=== PATIENT | male | born 1965 | race Caucasian/White ===

== ENCOUNTER 2017-08-09 15:36 | Observation (INO) | payer OTHER ==
[2017-08-09 15:48] VITALS: BP 113/85; PULSE 108; TEMP 98.5; BMI 24.2
[2017-08-09] MEDS ORDERED: ONDANSETRON 4 MG/2 ML VIAL IVPUSH ONE (18:13)
[2017-08-09] MEDS ORDERED: PANTOPRAZOLE SODIUM 40 MG in SODIUM CHLORIDE 100 ML IVPB ONE (18:13)
[2017-08-09] MEDS ORDERED: FOLIC ACID INJECTION - 1 MG, THIAMINE HCL 100 MG, MULTIVIT INJECTION ADULT 10 ML in SOD... IVPB ONE ×2 (18:14→20:55)
--- NOTE | 2017-08-09 18:34 | PDOC ---
History of Present Illness - General History Source: Patient Exam Limitations: No Limitations - History of Present Illness Initial Comments: 08/09/17 18:09 51-year-old male presents to the ED with complaints of generalized malaise, nausea and vomiting with epigastric pain for the past 3 days. Patient states was a heavy alcohol drinker consuming approximately 12. Her dad which she's been doing for numerous years along with similar smoking and states has had symptoms like this before along with tremors but never to this extent. Patient states last drink was 2:30 PM . Patient denies change in bowel, change in bladder, rash, lower extremity edema, chest pain, shortness of breath or headache. Severity: moderate Associated Symptoms: reports: loss of appetite, nausea/vomiting, weakness <Michelle Hill - Last Filed: 08/09/17 18:51> <Marlon Shafer - Last Filed: 08/09/17 21:53> - General Chief Complaint: Nausea/Vomiting Stated Complaint: VOMITING, INTOX Time Seen by Provider: 08/09/17 16:26 Past History - Travel Traveled outside of the country in the last 30 days: No - Past Medical History Anemia: No Asthma: No Cancer: No Cardiac Disorders: No CVA: No COPD: No CHF: No Dementia: No Diabetes: No GI Disorders: No Disorders: No HTN: No Hypercholesterolemia: No Liver Disease: No Seizures: No Thyroid Disease: No Other medical history: alcoholic - Surgical History Abdominal Surgery: No Appendectomy: No Cardiac Surgery: No Cholecystectomy: No Lung Surgery: No Neurologic Surgery: No Orthopedic Surgery: No - Suicide/Smoking/Psychosocial Hx Smoking Status: Yes Smoking History: Current every day smoker Have you smoked in the past 12 months: Yes Number of Cigarettes Smoked Daily: 10 Cigars Per Day: 1 Information on smoking cessation initiated: Yes 'Breaking Loose' booklet given: 08/09/17 Hx Alcohol Use: Yes (daily) Drug/Substance Use Hx: No Substance Use Type: Alcohol Hx Substance Use Treatment: No Patient Lives Alone: No Lives with/in: mother <Michelle Hill - Last Filed: 08/09/17 18:51> <Marlon Shafer - Last Filed: 08/09/17 21:53> - Past Medical History Allergies/Adverse Reactions: Allergies Allergy/AdvReac Type Severity Reaction Status Date / Time No Known Allergies Allergy Verified 08/09/17 15:45 Home Medications: Ambulatory Orders NK [No Known Home Medication] 08/09/17 Review of Systems - Review of Systems Able to Perform ROS?: No Constitutional: Yes: Weakness HEENTM: No: Symptoms Reported Respiratory: No: Symptoms reported Cardiac (ROS): No: Symptoms Reported ABD/GI: Yes: Nausea, Vomiting, Abdominal cramping. No: Constipated, Diarrhea, Poor Appetite, Poor Fluid Intake : No: Symptoms Reported Musculoskeletal: No: Symptoms Reported Integumentary: No: Symptoms Reported Neurological: No: Symptoms reported Endocrine: No: Symptoms Reported Hematologic/Lymphatic: No: Symptoms Reported <Michelle Hill - Last Filed: 08/09/17 18:51> *Physical Exam - Vital Signs Last Vital Signs Temp Pulse Resp BP Pulse Ox 98.5 F 108 H 18 113/85 100 08/09/17 15:45 08/09/17 15:45 08/09/17 15:45 08/09/17 15:45 08/09/17 15:45 - Physical Exam General Appearance: Yes: Nourished, Appropriately Dressed. No: Apparent Distress HEENT: positive: EOMI, TAWNYA. negative: Pale Conjunctivae Neck: positive: Supple Respiratory/Chest: positive: Lungs Clear, Normal Breath Sounds. negative: Respiratory Distress, Accessory Muscle Use Cardiovascular: positive: Regular Rhythm, Regular Rate. negative: Murmur Gastrointestinal/Abdominal: positive: Soft, Tenderness (epigastric) Musculoskeletal: negative: CVA Tenderness Extremity: positive: Normal Capillary Refill. negative: Pedal Edema Integumentary: positive: Normal Color, Warm, Moist Neurologic: positive: Motor Strength 5/5 (ambulatory) <Michelle Hill - Last Filed: 08/09/17 18:51> - Vital Signs Last Vital Signs Temp Pulse Resp BP Pulse Ox 98.5 F 108 H 18 113/85 100 08/09/17 15:45 08/09/17 15:45 08/09/17 15:45 08/09/17 15:45 08/09/17 15:45 <Marlon Shafer - Last Filed: 08/09/17 21:53> ED Treatment Course - LABORATORY CBC & Chemistry Diagram: 08/09/17 18:40 08/09/17 18:40 - RADIOLOGY Radiology Studies Ordered: Category Date Time Status CHEST X-RAY PORTABLE* [RAD] Stat Radiology 08/09/17 18:13 Ordered <Michelle Hill - Last Filed: 08/09/17 18:51> - LABORATORY CBC & Chemistry Diagram: 08/09/17 18:40 08/09/17 18:40 - ADDITIONAL ORDERS Additional order review: Laboratory Results 08/09/17 08/09/17 08/09/17 19:39 18:40 18:40 Sodium Potassium Chloride Carbon Dioxide Anion Gap BUN Creatinine Creat Clearance w eGFR Random Glucose Calcium Magnesium Total Bilirubin AST ALT Alkaline Phosphatase Total Protein Albumin Lipase Urine Color Ltyellow Urine Appearance Clear Urine pH 6.0 Urine Protein Negative Urine Glucose (UA) Negative Urine Ketones Negative Urine Blood 1+ H Urine Nitrite Negative Urine Bilirubin Negative Urine Urobilinogen Negative Alcohol, Quantitative 280.3 H* Acetone, Qual Cancelled 08/09/17 18:40 Sodium Cancelled Potassium Cancelled Chloride Cancelled Carbon Dioxide Cancelled Anion Gap Cancelled BUN Cancelled Creatinine Cancelled Creat Clearance w eGFR Cancelled Random Glucose Cancelled Calcium Cancelled Magnesium Cancelled Total Bilirubin Cancelled AST Cancelled ALT Cancelled Alkaline Phosphatase Cancelled Total Protein Cancelled Albumin Cancelled Lipase Cancelled Urine Color Urine Appearance Urine pH Urine Protein Urine Glucose (UA) Urine Ketones Urine Blood Urine Nitrite Urine Bilirubin Urine Urobilinogen Alcohol, Quantitative Acetone, Qual 08/09/17 18:40 RBC 3.45 L D MCV 91.6 MCHC 33.8 RDW 14.1 MPV 8.1 Neutrophils % 55.8 Lymphocytes % 35.3 D Monocytes % 8.5 Eosinophils % 0.0 D Basophils % 0.4 - Medications Given in the ED: ED Medications Discontinued Medications Generic Name Dose Route Start Last Admin Trade Name Freq PRN Reason Stop Dose Admin Pantoprazole Sodium 40 mg/ 100 mls @ 200 mls/hr 08/09/17 18:13 08/09/17 18:42 Sodium Chloride IVPB 08/09/17 18:42 200 mls/hr ONCE ONE Administration Ondansetron HCl 4 mg 08/09/17 18:13 08/09/17 18:40 Zofran Injection IVPUSH 08/09/17 18:14 4 mg ONCE ONE Administration <Marlon Shafer - Last Filed: 08/09/17 21:53> Medical Decision Making - Medical Decision Making 08/09/17 18:33 Patient here for evaluation of nausea vomiting and epigastric pain along with heavy alcohol use. Patient denies history of ulcers, pancreatitis, seizure, or inpatient rehabilitation for alcohol withdrawel. Patient states has no other symptoms at this time. Patient on exam had epigastric tenderness and appeared dehydrated. Patient ordered for labs, EKG, urine urine toxicology, alcohol level , banana bag, Zofran and Protonix. 08/09/17 18:51 Patient and his family is requesting rehabilitation. <Michelle Hill - Last Filed: 08/09/17 18:51> - Medical Decision Making 08/09/17 21:51 Patient eloped from emergency department. Patient had bed assigned and did not want to wait any longer. He requested the nurse remove his IV and refused to sign paperwork and walked out of ED. <Marlon Shafer - Last Filed: 08/09/17 21:53> *DC/Admit/Observation/Transfer <Michelle Hill - Last Filed: 08/09/17 18:51> - Discharge Dispostion Decision to Admit order Date/Time: 08/09/17 20:53 Patient will be an ED Observation patient at this time. Alcohol level 280. Patient needs to be at 100 for clearance to detox. <Malron Shafer - Last Filed: 08/09/17 21:53> Diagnosis at time of Disposition: Intoxication - Discharge Dispostion Disposition: ELOPED Condition at time of disposition: Stable
[2017-08-09] MEDS ORDERED: PANTOPRAZOLE SODIUM 100 ML IVPB ONE (18:35)
[2017-08-09] MEDS ORDERED: ONDANSETRON 4 MG/2 ML VIAL ONE (18:35)
[2017-08-09 18:52] LABS: BASOPHIL 0.4 % (0-2.0); MCHC 33.8 g/dl (32.0-35.9); MEAN CELL VOLUME 91.6 fl (80-96); MEAN PLT VOLUME 8.1 fl (7.5-11.1); NEUTROPHILS 55.8 % (42.8-82.8); PLATELET COUNT 132 K/MM3 (134-434); RDW 14.1 % (11.9-15.9); WHITE BLOOD COUNT 4.2 K/mm3 (4.0-10.0)
[2017-08-09 19:55] LABS: URINE APPEARANCE CLEAR; URINE BILIRUBIN NEGATIVE (NEGATIVE); URINE BLOOD 1+ (NEGATIVE); URINE COLOR LTYELLOW; URINE GLUCOSE (UA) NEGATIVE (NEGATIVE); URINE KETONE NEGATIVE (NEGATIVE); URINE LEUK ESTERASE NEGATIVE (NEGATIVE); URINE NITRITE NEGATIVE (NEGATIVE); URINE PROTEIN NEGATIVE (NEGATIVE); URINE UROBILINOGEN NEGATIVE mg/dL (0.2-1.0)
[2017-08-09 20:53] LABS: URINE BACTERIA RARE /hpf (NONE SEEN); URINE MUCUS RARE; URINE RBC 1 /hpf (0-3); URINE WBC <1 /hpf (3-5)
[2017-08-09 21:33] LABS: URINE MARIJUANA THC NEGATIVE ng/ml (CUTOFF=50)
--- NOTE | 2017-08-10 04:44 | PDOC ---
ED Treatment Course - LABORATORY CBC & Chemistry Diagram: 08/09/17 18:40 08/09/17 18:40 - ADDITIONAL ORDERS Additional order review: Laboratory Results 08/09/17 08/09/17 08/09/17 19:39 19:39 18:40 Sodium Potassium Chloride Carbon Dioxide Anion Gap BUN Creatinine Creat Clearance w eGFR Random Glucose Calcium Magnesium Total Bilirubin AST ALT Alkaline Phosphatase Total Protein Albumin Lipase Urine Color Ltyellow Urine Appearance Clear Urine pH 6.0 Ur Specific [place] <= 1.005 Urine Protein Negative Urine Glucose (UA) Negative Urine Ketones Negative Urine Blood 1+ H Urine Nitrite Negative Urine Bilirubin Negative Urine Urobilinogen Negative Urine RBC 1 Urine WBC <1 Ur Epithelial Cells Rare Urine Bacteria Rare Urine Mucus Rare Opiates Screen Negative Methadone Screen Negative Barbiturate Screen Negative Phencyclidine Screen Negative Ur Amphetamines Screen Negative MDMA (Ecstasy) Screen Negative Benzodiazepines Screen Negative Cocaine Screen Negative U Marijuana (THC) Screen Negative Alcohol, Quantitative 280.3 H* Acetone, Qual 08/09/17 08/09/17 18:40 18:40 Sodium Cancelled Potassium Cancelled Chloride Cancelled Carbon Dioxide Cancelled Anion Gap Cancelled BUN Cancelled Creatinine Cancelled Creat Clearance w eGFR Cancelled Random Glucose Cancelled Calcium Cancelled Magnesium Cancelled Total Bilirubin Cancelled AST Cancelled ALT Cancelled Alkaline Phosphatase Cancelled Total Protein Cancelled Albumin Cancelled Lipase Cancelled Urine Color Urine Appearance Urine pH Ur Specific [place] Urine Protein Urine Glucose (UA) Urine Ketones Urine Blood Urine Nitrite Urine Bilirubin Urine Urobilinogen Urine RBC Urine WBC Ur Epithelial Cells Urine Bacteria Urine Mucus Opiates Screen Methadone Screen Barbiturate Screen Phencyclidine Screen Ur Amphetamines Screen MDMA (Ecstasy) Screen Benzodiazepines Screen Cocaine Screen U Marijuana (THC) Screen Alcohol, Quantitative Acetone, Qual Cancelled 08/09/17 18:40 RBC 3.45 L D MCV 91.6 MCHC 33.8 RDW 14.1 MPV 8.1 Neutrophils % 55.8 Lymphocytes % 35.3 D Monocytes % 8.5 Eosinophils % 0.0 D Basophils % 0.4 - Medications Given in the ED: ED Medications Discontinued Medications Generic Name Dose Route Start Last Admin Trade Name Freq PRN Reason Stop Dose Admin Folic Acid 1 mg/ Thiamine HCl 1,000 mls @ 125 mls/hr 08/09/17 18:14 08/09/17 19 :00 100 mg/ Multivitamins/Minerals IVPB 08/10/17 02:13 125 mls/hr 10 ml/ Sodium Chloride ONCE ONE Administration Pantoprazole Sodium 40 mg/ 100 mls @ 200 mls/hr 08/09/17 18:13 08/09/17 18:42 Sodium Chloride IVPB 08/09/17 18:42 200 mls/hr ONCE ONE Administration Ondansetron HCl 4 mg 08/09/17 18:13 08/09/17 18:40 Zofran Injection IVPUSH 08/09/17 18:14 4 mg ONCE ONE Administration *DC/Admit/Observation/Transfer Diagnosis at time of Disposition: Intoxication - Discharge Dispostion Disposition: ELOPED Condition at time of disposition: Stable Admit: No
--- NOTE | 2017-08-10 09:51 | EKG ---
Test Reason : Blood Pressure : / mmHG Vent. Rate : 107 BPM Atrial Rate : 107 BPM P-R Int : 128 ms QRS Dur : 090 ms QT Int : 342 ms P-R-T Axes : 077 022 028 degrees QTc Int : 456 ms POOR DATA QUALITY, INTERPRETATION MAY BE ADVERSELY AFFECTED SINUS TACHYCARDIA Confirmed by ELAN HARRELL MD ([id number] on 08/10/2017 9:51:27 AM Referred By: Confirmed By:ELAN HARRELL MD
== END 2017-08-09 21:52 | disposition left against medical advice (07) ==
LOC: JER 15:36 → JERBED 20:54
PROVIDERS: ADMIT Internal Medicine; ATTEND Internal Medicine
PROC: 3E033GC Introduction of Other Therapeutic Substance into Peripheral Vein, Percutaneous Approach (ICD-10-PCS; principal; 2017-08-09)
DX: F10.220 Alcohol dependence with intoxication, uncomplicated (principal); F17.210 Nicotine dependence, cigarettes, uncomplicated
CPT/HCPCS: 36415; 71010-TC; 80307; 81003; 81015; 85025; 93005; 93010; 99284-25; G0378